=== PATIENT | male | born 1965 | race Caucasian/White ===

== ENCOUNTER 2021-09-12 19:15 | Emergency (ER) | payer SELFPAY ==
[2021-09-12] MEDS ORDERED: Cyclobenzaprine 10 MG Tab PO ONE (21:22)
[2021-09-12] MEDS ORDERED: Ketorolac 60 MG/2 ML SDV IM ONE (21:22)
[2021-09-12] MEDS ORDERED: HYDROmorphone 1 MG/ML Syringe IM ONE (22:15)
[2021-09-12] MEDS ORDERED: predniSONE 20 MG Tab PO ONE (22:15)
[2021-09-12] MEDS ORDERED: Acetaminophen/oxyCODONE 325-5 MG Tab PO ONE (22:52)
== END 2021-09-13 00:19 | disposition home or self-care (01) ==
LOC: JD.ED 19:15
DX: M54.41 Lumbago with sciatica, right side (principal)
CPT/HCPCS: 96372; 99283; A9270; J1170; J1885; J7512

== ENCOUNTER 2021-12-20 18:32 | Emergency (ER) | payer SELFPAY ==
[2021-12-20] MEDS ORDERED: Acetaminophen 325 MG Tab PO ONE (21:12)
== END 2021-12-20 22:35 | disposition home or self-care (01) ==
LOC: JD.ED 18:32
DX: U07.1 COVID-19 (principal); F17.210 Nicotine dependence, cigarettes, uncomplicated
CPT/HCPCS: 36415; 80048; 87635; 99283; A9270; U0002

== ENCOUNTER 2024-06-08 23:03 | Emergency (ER) | payer SELFPAY ==
[2024-06-08] MEDS ORDERED: Sodium Chloride 0.9% 10 ML Syringe FLUSH PRN (23:22)
[2024-06-08 23:34] LABS: BASOPHILS PERCENT AUTO 0.4 % (0.0-1.0); EOSINOPHILS ABSOLUTE AUTO 0.3 K/mm3 (0.0-0.4); EOSINOPHILS PERCENT AUTO 3.5 % (0.0-6.0); HEMATOCRIT 43.9 % (42.0-52.0); IMMATURE GRAN ABSOLUTE AUTO 0.03 K/mm3 (0.00-0.05); IMMATURE GRAN PERCENT AUTO 0.3 % (0.0-0.4); LYMPHOCYTES ABSOLUTE AUTO 3.3 K/mm3 (1.0-4.8); LYMPHOCYTES PERCENT AUTO 35.4 % (24.0-44.0); MEAN CORPUSCULAR HEMOGLOBIN 29.9 pg (28.0-32.0); MEAN CORPUSCULAR HGB CONC 34.2 g/dl (32.0-36.0); MEAN CORPUSCULAR VOLUME 87.5 fl (83.0-99.0); MEAN PLATELET VOLUME 9.7 fl (9.4-12.4); MONOCYTES ABSOLUTE AUTO 0.9 K/mm3 (0.0-0.8); MONOCYTES PERCENT AUTO 9.4 % (0.0-8.0); NEUTROPHILS ABSOLUTE AUTO 4.7 K/mm3 (1.8-7.7); PLATELET COUNT,PLT 233 K/mm3 (150-400); RED BLOOD CELL COUNT 5.02 M/mm3 (4.52-5.90)
[2024-06-08 23:56] LABS: A/G RATIO 1.2 (1-2); ALBUMIN 3.9 g/dl (3.4-5.0); ANION GAP 13.9 (5-15); BILIRUBIN TOTAL 0.4 mg/dL (0.2-1.0); BUN/CREATININE RATIO 16.4 (14-18); CALCIUM 9.5 mg/dL (8.5-10.1); CREATININE 1.1 mg/dL (0.7-1.3); EST CRCL DRUG DOSING (CG) 79.86 mL/min; PROTEIN TOTAL,TP 7.2 g/dl (6.4-8.2)
[2024-06-09 00:02] LABS: POTASSIUM,K 3.9 mEq/L (3.5-5.1)
[2024-06-09] MEDS: Iopamidol 612 MG/ML 100 ML Bottle IVPUSH ONE (00:11)
[2024-06-09] MEDS: Sodium Chloride 0.9% 10 ML Syringe FLUSH ONE (00:11)
[2024-06-09] MEDS: Sodium Chloride 0.9% 1,000 ML IV ONE (00:37)
[2024-06-09] MEDS: Ketorolac 15 MG/ML SDV IVPUSH ONE (00:38)
[2024-06-09 00:58] LABS: APPEARANCE,URINE CLEAR (Clear); BILIRUBIN,URINE NEGATIVE (Negative); COLOR,URINE YELLOW (Yellow); GLUCOSE,URINE 1+ (Negative); KETONES,URINE NEGATIVE (Negative); LEUKOCYTE ESTERASE,URINE NEGATIVE (Negative); NITRITE,URINE NEGATIVE (Negative); OCCULT BLOOD,URINE 1+ (Negative); PROTEIN,URINE TRACE (Negative); UROBILINOGEN,URINE 0.2 (0.2-1.0)
[2024-06-09 01:03] LABS: BACTERIA,URINE RARE /hpf (FEW); EPITHELIAL CELLS,URINE 0-5 /hpf (0-5); RBC,URINE 0-5 /hpf (0-5); WBC,URINE 0-5 /hpf (0-5)
[2024-06-09 01:04] LABS: MUCUS,URINE FEW /hpf (FEW)
== END 2024-06-09 01:59 | disposition home or self-care (01) ==
LOC: JD.ED 23:03
DX: N13.2 Hydronephrosis with renal and ureteral calculous obstruction (principal); F17.210 Nicotine dependence, cigarettes, uncomplicated; Z91.010 Allergy to peanuts; Z79.899 Other long term (current) drug therapy; Z86.16 Personal history of COVID-19
CPT/HCPCS: 36415; 74177; 74177-26; 80053; 81001; 83690; 85025; 93005; 96361; 96374; 99284-25; J1885; J7030; Q9967

== ENCOUNTER 2024-06-10 09:25 | Emergency (ER) | payer SELFPAY ==
[2024-06-10] MEDS: Ondansetron 4 MG/2 ML SDV IVPUSH ONE (10:44)
[2024-06-10] MEDS: Morphine 2 MG/ML SYRINGE IVPUSH PRN (10:46)
[2024-06-10] MEDS: Sodium Chloride 0.9% 1,000 ML IV ONE (10:50)
[2024-06-10 16:57] LABS: APPEARANCE,URINE CLEAR (Clear); BILIRUBIN,URINE NEGATIVE (Negative); COLOR,URINE YELLOW (Yellow); GLUCOSE,URINE 1+ (Negative); KETONES,URINE NEGATIVE (Negative); LEUKOCYTE ESTERASE,URINE NEGATIVE (Negative); NITRITE,URINE NEGATIVE (Negative); OCCULT BLOOD,URINE NEGATIVE (Negative); PH,URINE 6.5 (5.0-8.0); PROTEIN,URINE 1+ (Negative); UROBILINOGEN,URINE 0.2 (0.2-1.0)
[2024-06-10 17:09] LABS: BACTERIA,URINE FEW /hpf (FEW); MUCUS,URINE MODERATE /hpf (FEW); RBC,URINE 0-5 /hpf (0-5); SQUAMOUS EPITHELIAL CELLS,UR 0-5 /hpf (0-5); WBC,URINE 0-5 /hpf (0-5)
== END 2024-06-10 17:05 | disposition home or self-care (01) ==
LOC: JD.ED 09:25
DX: N20.0 Calculus of kidney (principal); F17.210 Nicotine dependence, cigarettes, uncomplicated; Z91.010 Allergy to peanuts; Z86.16 Personal history of COVID-19; Z79.899 Other long term (current) drug therapy
CPT/HCPCS: 74018; 81001; 96361; 96374; 96375; 99284; J2270; J2405; J7030